=== PATIENT | female | born 1965 | race African-American/Black ===

== ENCOUNTER 2022-05-08 11:35 | Emergency (ER) | payer BC ==
[~2022-05-08] VITALS: Ht 165.1 cm; Wt 75.0 kg
[2022-05-08] MEDS ORDERED: ONDANSETRON HCL 4MG/2ML INJ IV STA (12:27)
[2022-05-08] MEDS ORDERED: MORPHINE SULFATE 4 MG/ML CPJ (NOT FOR IM USE) IV STA (12:27)
[2022-05-08] MEDS ORDERED: SODIUM CHLORIDE 0.9% 1,000 ML IV ONE (12:30)
[2022-05-08] MEDS ORDERED: FAMOTIDINE 20MG/2ML VIAL IV ONE (12:30)
[2022-05-08 12:55] LABS: BASOPHILS % 0.6 % (0.0-2.0); EOSINOPHILS % 0.1 % (0.0-5.0); HEMATOCRIT. 42.7 % (36.0-48.0); HEMOGLOBIN. 14.2 g/dL (12.0-16.0); LYMPHOCYTES % 24.2 % (20.0-50.0); MEAN CORPUSCULAR HEMOGLOBIN 34.2 pg (28.0-32.0); MEAN CORPUSCULAR VOLUME 103.1 fL (81.0-99.0); MEAN PLATELET VOLUME 7.7 fl (7.4-10.4); MONOCYTES % 8.2 % (2.0-8.0); NEUTROPHILS % 66.9 % (40.0-76.0); PLATELET 194 x1000/uL (130-400); RED BLOOD CELL COUNT 4.14 mill/uL (4.2-5.4); RED CELL DISTRIBUTION WIDTH 13.5 % (11.6-14.6)
[2022-05-08 13:11] LABS: CHLORIDE 100 mEq/L (98-107)
[2022-05-08 13:33] LABS: CLARITY URINE CLEAR (CLEAR); COLOR URINE YELLOW (YELLOW); KETONES URINE 1+ (NEGATIVE); LEUKOCYTE ESTERASE URINE 1+ (NEGATIVE); NITRITE URINE POSITIVE (NEGATIVE); OCCULT BLOOD URINE NEGATIVE (NEGATIVE); PH URINE 5.5 (4.5-8.0); PROTEIN URINE NEGATIVE (NEGATIVE); SPECIFIC GRAVITY URINE 1.007 (1.005-1.030); UROBILINOGEN URINE 0.2 E.U./dL (0.2-1.0)
[2022-05-08] MEDS ORDERED: CEFTRIAXONE 1 G PREMIX 50 ML IV ONE (14:15)
[2022-05-08] MEDS ORDERED: ONDA4TAB50 MT ×3 (14:25→15:07)
[2022-05-08] MEDS ORDERED: IBUP-2028 MT ×3 (14:25→15:07)
[2022-05-08] MEDS ORDERED: CEPH500C2 MT ×3 (14:25→15:07)
[2022-05-08 14:27] VITALS: BP 133/75
[2022-05-08] MEDS ORDERED: CEFTRIAXONE 1,000 MG in DEXTROSE 5% WATER 50 ML IV NR (14:30)
== END 2022-05-08 15:17 | disposition home or self-care (01) ==
LOC: ER 11:52
DX: N39.0 Urinary tract infection, site not specified (principal); U07.1 COVID-19; I10 Essential (primary) hypertension; M79.7 Fibromyalgia; Z98.84 Bariatric surgery status; Z88.8 Allergy status to other drugs, medicaments and biological substances; Z91.048 Other nonmedicinal substance allergy status; Z88.2 Allergy status to sulfonamides
CPT/HCPCS: 36415; 71045; 80053; 81003; 82962; 83690; 84484; 85025; 87077; 87086; 87186; 93005; 96361; 96365; 96375; 99285; J0696; J2270; J2405; J3490; J7030; J7060

== ENCOUNTER 2022-08-02 09:48 | Inpatient (IN) | payer BC ==
[~2022-08-02] VITALS: Ht 165.1 cm; Wt 71.7 kg
[~2022-08-02 09:48] MED LIST: CEPH500C2 MT; IBUP-2028 MT; ONDA4TAB50 MT
[2022-08-02 10:50] LABS: BASOPHILS % 0.8 % (0.0-2.0); EOSINOPHILS % 0.4 % (0.0-5.0); HEMATOCRIT. 44.5 % (36.0-48.0); HEMOGLOBIN. 15.2 g/dL (12.0-16.0); LYMPHOCYTES % 27.4 % (20.0-50.0); MEAN CORPUSCULAR HEMOGLOBIN 35.8 pg (28.0-32.0); MEAN PLATELET VOLUME 7.9 fl (7.4-10.4); MONOCYTES % 6.5 % (2.0-8.0); NEUTROPHILS % 64.9 % (40.0-76.0); PLATELET 289 x1000/uL (130-400); RED BLOOD CELL COUNT 4.24 mill/uL (4.2-5.4); RED CELL DISTRIBUTION WIDTH 14.3 % (11.6-14.6)
[2022-08-02 10:57] LABS: CHLORIDE 99 mEq/L (98-107)
[2022-08-02] MEDS ORDERED: TOPUD PO (11:43)
[2022-08-02] MEDS ORDERED: SODIUM CHLORIDE 0.9% 1,000 ML IV ONE (11:45)
[2022-08-02] MEDS ORDERED: ONDANSETRON HCL 4MG/2ML INJ IV PRN (14:30)
[2022-08-02] MEDS ORDERED: MAGNESIUM/ALUMINUM HYDROXIDE/SIMETHICONE 30ML UDC PO PRN (14:30)
[2022-08-02] MEDS ORDERED: DOCUSATE SODIUM 100MG CAPSULE PO PRN (14:30)
[2022-08-02] MEDS ORDERED: ACETAMINOPHEN 650MG SUPP PR PRN ×2 (14:30)
[2022-08-02] MEDS ORDERED: IPRATROPIUM/ALBUTEROL 0.5-3(2.5)MG/3ML NEB HHN PRN (14:30)
[2022-08-02] MEDS ORDERED: ACETAMINOPHEN 325MG TABLET PO PRN ×2 (14:30)
[2022-08-02] MEDS: HYDROCODONE/ACETAMINOPHEN 5/325MG TABLET PO PRN ×2 (15:33→19:35)
[2022-08-02 16:34] VITALS: BP 142/77
[2022-08-02] MEDS ORDERED: ESCI10TA PO (16:41)
[2022-08-02] MEDS ORDERED: AMLO5TAB4 PO (16:41)
[2022-08-02] MEDS ORDERED: LISI40TA13 PO (16:41)
[2022-08-02] MEDS ORDERED: CYAN-33 PO (16:47)
[2022-08-02] MEDS ORDERED: CHOL500051 (16:47)
[2022-08-02 17:00] VITALS: BP 122/77
[2022-08-02 17:55] LABS: VITAMIN B12 SERUM >2000 pg/mL pg/mL (211-911)
[2022-08-02 20:00] VITALS: BP_SYST 143; BP_SYST 145; BP_SYST 163; BP_DIAS 80; BP_DIAS 84; BP_DIAS 94
[2022-08-02] MEDS: GUAIFENESIN 200MG/10ML SUGAR FREE UDC PO PRN (20:23)
[2022-08-02 20:40] VITALS: BP 143/88
[2022-08-02] MEDS: DULOXETINE HCL 20MG DR CAPSULE PO SCH (22:00)
[2022-08-03] VITALS: BP 143/85
[2022-08-03] MEDS: GUAIFENESIN 200MG/10ML SUGAR FREE UDC PO PRN ×3 (00:37→20:06)
[2022-08-03] MEDS: HYDROCODONE/ACETAMINOPHEN 5/325MG TABLET PO PRN ×4 (00:37→20:07)
[2022-08-03 04:00] VITALS: BP 163/83
[2022-08-03] MEDS: CLONIDINE 0.1MG TABLET PO PRN ×2 (05:23→22:51)
[2022-08-03 08:00] VITALS: BP_SYST 139; BP_SYST 144; BP_SYST 154; BP_DIAS 84; BP_DIAS 91; BP_DIAS 92
[2022-08-03 08:10] LABS: BASOPHILS % 0.7 % (0.0-2.0); EOSINOPHILS % 0.7 % (0.0-5.0); HEMATOCRIT. 39.9 % (36.0-48.0); HEMOGLOBIN. 13.5 g/dL (12.0-16.0); LYMPHOCYTES % 48.2 % (20.0-50.0); MEAN CORPUSCULAR HEMOGLOBIN 35.4 pg (28.0-32.0); MEAN CORPUSCULAR VOLUME 104.7 fL (81.0-99.0); MEAN PLATELET VOLUME 7.7 fl (7.4-10.4); MONOCYTES % 9.1 % (2.0-8.0); NEUTROPHILS % 41.3 % (40.0-76.0); PLATELET 226 x1000/uL (130-400); RED BLOOD CELL COUNT 3.81 mill/uL (4.2-5.4); RED CELL DISTRIBUTION WIDTH 14.1 % (11.6-14.6)
[2022-08-03] MEDS: DULOXETINE HCL 20MG DR CAPSULE PO SCH (08:53)
[2022-08-03 09:32] LABS: CHLORIDE 102 mEq/L (98-107)
[2022-08-03 09:49] LABS: CREATINE KINASE 90 IU/L (26-192); LDL CHOLESTEROL 97 mg/dL (5-100); T4 FREE 0.69 ng/dL (0.76-1.46)
[2022-08-03] MEDS ORDERED: ZOLPIDEM TARTRATE 5MG TABLET PO PRN (11:00)
[2022-08-03] MEDS: AMLODIPINE 5MG TABLET PO SCH (11:01)
[2022-08-03] MEDS: LEVOTHYROXINE SODIUM 25MCG TABLET PO SCH (11:30)
[2022-08-03 12:00] VITALS: BP 154/82
[2022-08-03 13:17] LABS: HDL CHOLESTEROL 202 mg/dL (40-59)
[2022-08-03 16:00] VITALS: BP_SYST 138; BP_SYST 140; BP_DIAS 80
[2022-08-03 18:11] LABS: CLARITY URINE CLOUDY (CLEAR); COLOR URINE YELLOW (YELLOW); KETONES URINE NEGATIVE (NEGATIVE); LEUKOCYTE ESTERASE URINE NEGATIVE (NEGATIVE); NITRITE URINE NEGATIVE (NEGATIVE); OCCULT BLOOD URINE NEGATIVE (NEGATIVE); PH URINE 5.5 (4.5-8.0); PROTEIN URINE NEGATIVE (NEGATIVE); SPECIFIC GRAVITY URINE 1.007 (1.005-1.030); UROBILINOGEN URINE 0.2 E.U./dL (0.2-1.0)
[2022-08-03 18:22] LABS: *AMPHETAMINES SCREEN URINE NEGATIVE (NEGATIVE); *BARBITURATES SCREEN URINE NEGATIVE (NEGATIVE); *BENZODIAZEPINES SCREEN URINE NEGATIVE (NEGATIVE); *COCAINE SCREEN URINE NEGATIVE (NEGATIVE); CANNABINOID URINE SCREEN PRESUMTIVE POSITIVE (NEGATIVE); METHADONE URINE SCREEN NEGATIVE (NEGATIVE); OPIATES URINE SCREEN PRESUMTIVE POSITIVE (NEGATIVE); PHENCYCLIDINE URINE SCREEN NEGATIVE (NEGATIVE)
[2022-08-03 20:00] VITALS: BP_SYST 131; BP_SYST 146; BP_SYST 149; BP_DIAS 86; BP_DIAS 87; BP_DIAS 89
[2022-08-04] VITALS: BP 169/103
[2022-08-04 04:00] VITALS: BP 139/79
[2022-08-04] MEDS: HYDROCODONE/ACETAMINOPHEN 5/325MG TABLET PO PRN ×2 (04:01→10:08)
[2022-08-04] MEDS: LEVOTHYROXINE SODIUM 25MCG TABLET PO SCH (06:02)
[2022-08-04 08:00] VITALS: BP 140/82
[2022-08-04] MEDS: AMLODIPINE 5MG TABLET PO SCH (09:55)
[2022-08-04] MEDS: DULOXETINE HCL 20MG DR CAPSULE PO SCH (09:55)
[2022-08-04 12:00] VITALS: BP 152/91
[2022-08-04] MEDS ORDERED: ATOR20TA PO (14:41)
[2022-08-04] MEDS ORDERED: CYM20 PO (14:41)
[2022-08-04] MEDS ORDERED: BUSP5TAB3 PO (14:41)
[2022-08-04] MEDS ORDERED: TRAZ-251 PO (14:41)
[2022-08-04] MEDS ORDERED: LEVO25TA7 PO (14:41)
[2022-08-04 15:15] VITALS: BP 152/91
[2022-08-04] MEDS ORDERED: DULOXETINE HCL 20MG DR CAPSULE PO SCH (17:00)
[2022-08-04] MEDS ORDERED: ATORVASTATIN CALCIUM 20MG TABLET PO SCH (21:00)
[2022-08-04] MEDS ORDERED: TRAZODONE HCL 50MG TABLET PO SCH ×2 (21:00)
[2022-08-04] MEDS ORDERED: BUSPIRONE HCL 5MG TABLET PO SCH (21:00)
== END 2022-08-04 17:10 | disposition home health service (06) | DRG 74 ==
LOC: ER 09:48 → EDBEDREQ 12:56 → EDBEDREQTM 13:34 → 7EST 15:48
PROVIDERS: ADMIT Family Medicine Adult Medicine; ATTEND Family Medicine Adult Medicine
DX: G90.8 Other disorders of autonomic nervous system (principal); F32.9 Major depressive disorder, single episode, unspecified; F41.1 Generalized anxiety disorder; G47.00 Insomnia, unspecified; E78.00 Pure hypercholesterolemia, unspecified; I10 Essential (primary) hypertension; R00.2 Palpitations; E03.8 Other specified hypothyroidism; Z20.822 Contact with and (suspected) exposure to COVID-19; Z79.899 Other long term (current) drug therapy; Z98.84 Bariatric surgery status; Z98.82 Breast implant status; Z88.2 Allergy status to sulfonamides; Z88.8 Allergy status to other drugs, medicaments and biological substances; Z88.5 Allergy status to narcotic agent; Z87.440 Personal history of urinary (tract) infections
CPT/HCPCS: 36415; 70551; 71045; 80053; 80061; 80305; 81003; 82550; 82607; 83735; 83880; 84439; 84443; 84481; 84484; 85025; 87426; 87804; 93005; 93306; 97162; 99285; C9803; J7030

== ENCOUNTER → 2022-11-25 | Outpatient (CLI) | payer OTHER ==
[~2022-11-25] MED LIST changes: +AMLO5TAB4 PO; +ATOR20TA PO; +BUSP5TAB3 PO; -CEPH500C2 MT; +CHOL500051; +CYAN-33 PO; +CYM20 PO; -IBUP-2028 MT; +LEVO25TA7 PO; +LISI40TA13 PO; -ONDA4TAB50 MT; +TRAZ-251 PO
== END | disposition home or self-care (01) ==
LOC: MRI 08:31
PROVIDERS: ATTEND Family Medicine Adult Medicine
DX: M51.37 Other intervertebral disc degeneration, lumbosacral region (principal); M51.27 Other intervertebral disc displacement, lumbosacral region; M47.817 Spondylosis without myelopathy or radiculopathy, lumbosacral region; M48.061 Spinal stenosis, lumbar region without neurogenic claudication
CPT/HCPCS: 72148

== ENCOUNTER → 2022-12-03 | Outpatient (CLI) | payer OTHER | END | disposition home or self-care (01) | LOC: MRI 14:04 | PROVIDERS: ATTEND Family Medicine Adult Medicine | DX: M51.24 Other intervertebral disc displacement, thoracic region (principal); M54.89 Other dorsalgia | CPT/HCPCS: 72146 ==

== ENCOUNTER → 2023-01-24 | Outpatient (CLI) | payer BC ==
[2023-01-24 08:06] LABS: BASOPHILS % 0.8 % (0.0-2.0); EOSINOPHILS % 0.9 % (0.0-5.0); HEMOGLOBIN. 14.5 g/dL (12.0-16.0); LYMPHOCYTES % 34.8 % (20.0-50.0); MEAN CORPUSCULAR HEMOGLOBIN 34.6 pg (28.0-32.0); MEAN CORPUSCULAR VOLUME 102.8 fL (81.0-99.0); MEAN PLATELET VOLUME 7.5 fl (7.4-10.4); MONOCYTES % 8.4 % (2.0-8.0); NEUTROPHILS % 55.1 % (40.0-76.0); PLATELET 218 x1000/uL (130-400); RED BLOOD CELL COUNT 4.18 mill/uL (4.2-5.4); RED CELL DISTRIBUTION WIDTH 13.5 % (11.6-14.6)
[2023-01-24 08:42] LABS: CHLORIDE 102 mEq/L (98-107)
[2023-01-24 08:56] LABS: LDL CHOLESTEROL 62 mg/dL (5-100); T4 FREE 0.86 ng/dL (0.76-1.46)
[2023-01-24 09:08] LABS: VITAMIN B12 SERUM 662 pg/mL (211-911)
[2023-01-24 09:25] LABS: HDL CHOLESTEROL > 150 mg/dL (40-59)
[2023-01-25 08:10] LABS: ESTRADIOL < 5.0 pg/mL (.); FOLICLE STIMULATING HORMONE 42.9 mIU/mL (.); THYROID PEROXIDASE ANTIBODY < 9 IU/mL (0-34); VITAMIN D 25-OH 46.6 ng/mL (30.0-100.0)
== END | disposition home or self-care (01) ==
LOC: LAB 07:37
PROVIDERS: ATTEND Family Medicine
DX: I10 Essential (primary) hypertension (principal); N95.1 Menopausal and female climacteric states; E55.9 Vitamin D deficiency, unspecified
CPT/HCPCS: 36415; 80053; 80061; 82306; 82607; 82670; 83001; 83036; 84403; 84439; 84443; 84481; 85025; 86376; 86592

== ENCOUNTER 2023-04-07 10:44 | Emergency (ER) | payer BC, OTHER ==
[~2023-04-07] VITALS: Ht 165.1 cm; Wt 63.0 kg
[2023-04-07 10:57] VITALS: TEMP 99.1; O2SAT 100
[2023-04-07] MEDS ORDERED: ACETAMINOPHEN WITH CODEINE 300/30MG TABLET PO ONE (11:45)
[2023-04-07] MEDS ORDERED: KETOROLAC 60MG/2ML VIAL IM ONE (12:00)
[2023-04-07 12:02] VITALS: BP 143/90; PULSE 89; RESP 18
[2023-04-07] MEDS ORDERED: T3 PO ×2 (12:08→12:44)
== END 2023-04-07 12:52 | disposition home or self-care (01) ==
LOC: ER 10:44
DX: G89.29 Other chronic pain (principal); M54.50 Low back pain, unspecified; I10 Essential (primary) hypertension; Z87.440 Personal history of urinary (tract) infections; M79.7 Fibromyalgia; Z79.899 Other long term (current) drug therapy; Z88.2 Allergy status to sulfonamides
CPT/HCPCS: 99283; 96372; J1885

== ENCOUNTER 2023-11-08 11:14 | Inpatient (IN) | payer BC, MEDICAID ==
[~2023-11-08] VITALS: Ht 165.1 cm; Wt 54.4 kg
[~2023-11-08 11:14] MED LIST changes: +T3 PO
[2023-11-08] MEDS ORDERED: MORPHINE SULFATE 4 MG/ML CPJ (NOT FOR IM USE) IV STA (11:34)
[2023-11-08] MEDS ORDERED: ONDANSETRON HCL 4MG/2ML INJ IV STA (11:34)
[2023-11-08 12:39] LABS: BASOPHILS % 1.1 % (0.0-2.0); DIFFERENTIAL COMMENT 0; EOSINOPHILS % 1.9 % (0.0-5.0); HEMATOCRIT. 33.7 % (36.0-48.0); HEMOGLOBIN. 11.3 g/dL (12.0-16.0); LYMPHOCYTES % 38.4 % (20.0-50.0); MEAN CORPUSCULAR HEMOGLOBIN 35.6 pg (28.0-32.0); MEAN CORPUSCULAR HGB CONC 33.5 g/dL (31.0-37.0); MEAN CORPUSCULAR VOLUME 106.3 fL (81.0-99.0); MEAN PLATELET VOLUME 7.2 fl (7.4-10.4); MONOCYTES % 9.6 % (2.0-8.0); PLATELET 205 x1000/uL (130-400); RED BLOOD CELL COUNT 3.17 mill/uL (4.2-5.4); RED CELL DISTRIBUTION WIDTH 14.4 % (11.6-14.6); WHITE BLOOD COUNT 2.9 x1000/uL (4.5-11.0)
[2023-11-08 12:58] LABS: ALANINE AMINOTRANSFERASE 17 IU/L (10-49); ALBUMIN 4.1 g/dL (3.2-4.8); ASPARTATE AMINOTRANSFERASE 38 IU/L (<34); BILIRUBIN TOTAL 0.6 mg/dL (0.1-1.0); CALCIUM 9.6 mg/dL (8.7-10.4); CARBON DIOXIDE 22 mEq/L (21-32); CHLORIDE 107 mEq/L (98-107); CREATININE 1.3 mg/dL (0.6-1.0); GLUCOSE 101 mg/dL (70-105); SODIUM 139 mEq/L (136-145); UREA NITROGEN BLOOD 16 mg/dL (9-23)
[2023-11-08 13:12] LABS: TROPONIN I HIGH SENSITIVITY < 4 ng/L (3.0-34)
[2023-11-08] MEDS: MORPHINE SULFATE 4 MG/ML CPJ (NOT FOR IM USE) IV NR (13:16)
[2023-11-08] MEDS: SODIUM CHLORIDE 0.9% 1,000 ML IV ONE (13:16)
[2023-11-08] MEDS: ONDANSETRON HCL 4MG/2ML INJ IV NR (13:16)
[2023-11-08] MEDS: KETOROLAC 30MG/ML VIAL IV ONE (15:35)
[2023-11-08] MEDS: CYCLOBENZAPRINE 10MG TABLET PO ONE (15:36)
[2023-11-08] MEDS: MORPHINE SULFATE 4 MG/ML CPJ (NOT FOR IM USE) IV ONE (15:41)
[2023-11-08] MEDS ORDERED: IPRATROPIUM/ALBUTEROL 0.5-3(2.5)MG/3ML NEB NEB PRN (17:45)
[2023-11-08] MEDS ORDERED: ACETAMINOPHEN 325MG TABLET PO PRN ×2 (17:45)
[2023-11-08] MEDS ORDERED: GUAIFENESIN 200MG/10ML SUGAR FREE UDC PO PRN (17:45)
[2023-11-08] MEDS ORDERED: ONDANSETRON HCL 4MG/2ML INJ IV PRN (17:45)
[2023-11-08 18:35] VITALS: BP 166/86; PULSE 90; RESP 12; TEMP 98.8
[2023-11-08 18:37] VITALS: BP 166/86; PULSE 91; RESP 12; TEMP 98.8
[2023-11-08] MEDS: ENOXAPARIN 40MG/0.4ML SYR SUBCUT SCH (19:37)
[2023-11-08] MEDS: KETOROLAC 15MG/ML VIAL IV PRN (19:38)
[2023-11-08 20:00] VITALS: BP 159/74; PULSE 93; RESP 15; TEMP 98.5
[2023-11-08] MEDS: SODIUM CHLORIDE 0.45% 1,000 ML IV SCH (21:20)
[2023-11-08] MEDS: HYDROCODONE/ACETAMINOPHEN 5/325MG TABLET PO PRN (22:37)
[2023-11-09 00:02] VITALS: BP 99/60; PULSE 75; RESP 15; TEMP 97.9
[2023-11-09 04:00] VITALS: BP 118/76; PULSE 77; RESP 12; TEMP 97.7
[2023-11-09 06:52] LABS: ALANINE AMINOTRANSFERASE 12 IU/L (10-49); ALBUMIN 3.4 g/dL (3.2-4.8); ASPARTATE AMINOTRANSFERASE 34 IU/L (<34); BILIRUBIN TOTAL 0.4 mg/dL (0.1-1.0); CALCIUM 8.8 mg/dL (8.7-10.4); CARBON DIOXIDE 21 mEq/L (21-32); CHLORIDE 107 mEq/L (98-107); CHOLESTEROL 221 mg/dL (<200); GLUCOSE 153 mg/dL (70-105); HDL CHOLESTEROL 115 mg/dL (>65); IRON 49 ug/dL (50-170); LDL CHOLESTEROL 85 mg/dL (5-100); POTASSIUM 3.4 mEq/L (3.5-5.1); PROTEIN TOTAL 5.6 g/dL (6.0-8.3); SODIUM 137 mEq/L (136-145); TOTAL IRON BINDING CAPACITY 230 ug/dl (250-425); TRIGLYCERIDE 130 mg/dL (0-150); UREA NITROGEN BLOOD 16 mg/dL (9-23)
[2023-11-09 07:31] LABS: HEMATOCRIT. 28.3 % (36.0-48.0); HEMOGLOBIN. 9.7 g/dL (12.0-16.0); MEAN CORPUSCULAR HEMOGLOBIN 35.7 pg (28.0-32.0); MEAN CORPUSCULAR HGB CONC 34.2 g/dL (31.0-37.0); MEAN CORPUSCULAR VOLUME 104.4 fL (81.0-99.0); MEAN PLATELET VOLUME 7.8 fl (7.4-10.4); PLATELET 142 x1000/uL (130-400); RED BLOOD CELL COUNT 2.71 mill/uL (4.2-5.4); RED CELL DISTRIBUTION WIDTH 14.1 % (11.6-14.6)
[2023-11-09 08:00] VITALS: BP 144/72; PULSE 78; RESP 20; TEMP 98
[2023-11-09 08:49] LABS: DIFFERENTIAL COMMENT 1
[2023-11-09] MEDS: AMLODIPINE 10MG TABLET PO SCH (09:03)
[2023-11-09 10:06] LABS: CLARITY URINE CLOUDY (CLEAR); COLOR URINE YELLOW (YELLOW); GLUCOSE URINE NEGATIVE (NEGATIVE); KETONES URINE TRACE (NEGATIVE); LEUKOCYTE ESTERASE URINE TRACE (NEGATIVE); NITRITE URINE NEGATIVE (NEGATIVE); OCCULT BLOOD URINE NEGATIVE (NEGATIVE); PH URINE 5.5 (4.5-8.0); PROTEIN URINE TRACE (NEGATIVE); UROBILINOGEN URINE 0.2 E.U./dL (0.2-1.0)
[2023-11-09 11:35] LABS: SQUAMOUS EPITHELIAL CELL URINE 3+ /lpf (RARE/1+)
[2023-11-09 11:37] LABS: BACTERIA URINE 4+; RBC URINE 0-2 /hpf (0-2)
[2023-11-09 12:00] VITALS: BP 107/66; PULSE 76; RESP 12; TEMP 98.1
[2023-11-09] MEDS: MAGNESIUM 2 G PREMIX 50 ML IV NR (12:17)
[2023-11-09] MEDS: SERTRALINE HCL 25MG TABLET PO SCH (14:14)
[2023-11-09] MEDS ORDERED: NALOXONE HCL 0.4MG/ML VIAL IV PRN (15:15)
[2023-11-09 16:00] VITALS: BP 126/73; PULSE 94; RESP 16; TEMP 98.3
[2023-11-09 16:42] LABS: PLATELET ESTIMATE NORMAL
[2023-11-09] MEDS: POTASSIUM CHLORIDE 20MEQ TABLET SR PO NR (16:53)
[2023-11-09 17:13] LABS: FERRITIN 161 ng/mL (10-291); FOLIC ACID (FOLATE) SERUM 8.43 ng/mL (>5.38); VITAMIN B12 SERUM 370 pg/mL (211-911)
[2023-11-09 20:00] VITALS: BP 101/73; PULSE 85; RESP 17; TEMP 98.2
[2023-11-09] MEDS: MIRTAZAPINE 15MG TABLET PO SCH (20:58)
[2023-11-10] VITALS: BP 148/88; PULSE 96; RESP 19; TEMP 98.8
[2023-11-10 04:00] VITALS: BP 109/71; PULSE 93; RESP 16; TEMP 98.7
[2023-11-10 06:43] LABS: HEMATOCRIT. 30.4 % (36.0-48.0); HEMOGLOBIN. 10.2 g/dL (12.0-16.0); MEAN CORPUSCULAR HEMOGLOBIN 35.7 pg (28.0-32.0); MEAN CORPUSCULAR HGB CONC 33.5 g/dL (31.0-37.0); MEAN CORPUSCULAR VOLUME 106.7 fL (81.0-99.0); MEAN PLATELET VOLUME 7.7 fl (7.4-10.4); PLATELET 171 x1000/uL (130-400); RED BLOOD CELL COUNT 2.85 mill/uL (4.2-5.4); RED CELL DISTRIBUTION WIDTH 13.8 % (11.6-14.6)
[2023-11-10 06:57] LABS: DIFFERENTIAL COMMENT 1
[2023-11-10 06:58] LABS: WHITE BLOOD COUNT 1.9 x1000/uL (4.5-11.0)
[2023-11-10 07:11] LABS: CALCIUM 8.9 mg/dL (8.7-10.4); CARBON DIOXIDE 21 mEq/L (21-32); CHLORIDE 110 mEq/L (98-107); CREATININE 0.7 mg/dL (0.6-1.0); GLUCOSE 99 mg/dL (70-105); PHOSPHORUS 3.7 mg/dL (2.5-4.9); SODIUM 139 mEq/L (136-145); UREA NITROGEN BLOOD 11 mg/dL (9-23)
[2023-11-10 07:52] LABS: ERYTHROCYTE SEDIMENTATION RATE 17 mm/hr (0-30)
[2023-11-10 08:00] VITALS: BP 126/74; PULSE 73; RESP 16; TEMP 98.1
[2023-11-10 12:00] VITALS: BP 106/62; PULSE 94; RESP 12; TEMP 98
[2023-11-10] MEDS: DOCUSATE SODIUM 100MG CAPSULE PO SCH (13:30)
[2023-11-10 14:22] LABS: PLATELET ESTIMATE NORMAL
[2023-11-10 16:00] VITALS: BP 91/54; PULSE 84; RESP 11; TEMP 97.9
[2023-11-10 20:00] VITALS: BP 106/62; PULSE 101; RESP 16; TEMP 98.4
[2023-11-11] VITALS: BP 147/85; PULSE 102; RESP 11; TEMP 98.9
[2023-11-11 04:00] VITALS: BP 159/79; PULSE 100; RESP 19; TEMP 98.9
[2023-11-11 08:00] VITALS: BP 143/78; PULSE 114; RESP 20; TEMP 98.6
[2023-11-11] MEDS: CYANOCOBALAMIN 1000MCG TABLET PO SCH (08:00)
[2023-11-11 08:11] LABS: ALPHA FETOPROTEIN TUMOR MARKER 8.1 ng/mL (0.0-9.2); CANCER ANTIGEN 125 11.2 U/mL (0.0-38.1); CARCINOEMBRYONIC AG - SEND OUT 2.4 ng/mL (0.0-4.7)
[2023-11-11] MEDS: MAGNESIUM OXIDE 400MG TABLET PO SCH (11:30)
[2023-11-11 11:43] LABS: HEMATOCRIT. 30.7 % (36.0-48.0); HEMOGLOBIN. 10.3 g/dL (12.0-16.0); MEAN CORPUSCULAR HEMOGLOBIN 34.9 pg (28.0-32.0); MEAN CORPUSCULAR HGB CONC 33.5 g/dL (31.0-37.0); MEAN CORPUSCULAR VOLUME 104.4 fL (81.0-99.0); MEAN PLATELET VOLUME 7.8 fl (7.4-10.4); PLATELET 177 x1000/uL (130-400); RED BLOOD CELL COUNT 2.94 mill/uL (4.2-5.4); RED CELL DISTRIBUTION WIDTH 13.7 % (11.6-14.6)
[2023-11-11 11:53] LABS: CALCIUM 9.1 mg/dL (8.7-10.4); CARBON DIOXIDE 23 mEq/L (21-32); CHLORIDE 109 mEq/L (98-107); CREATININE 0.7 mg/dL (0.6-1.0); GLUCOSE 85 mg/dL (70-105); PHOSPHORUS 3.3 mg/dL (2.5-4.9); POTASSIUM 4.2 mEq/L (3.5-5.1); SODIUM 139 mEq/L (136-145); UREA NITROGEN BLOOD 12 mg/dL (9-23)
[2023-11-11 11:54] LABS: DIFFERENTIAL COMMENT 1
[2023-11-11 11:56] LABS: WHITE BLOOD COUNT 1.9 x1000/uL (4.5-11.0)
[2023-11-11 12:00] VITALS: BP 134/71; PULSE 91; RESP 18; TEMP 98
[2023-11-11] MEDS: GABAPENTIN 100MG CAPSULE PO SCH (13:11)
[2023-11-11] MEDS: LIDOCAINE HCL 4% CREAM 76GM TUBE TP PRN (14:43)
[2023-11-11 16:00] VITALS: BP 131/72; PULSE 110; RESP 16; TEMP 98
[2023-11-11] MEDS ORDERED: LEVO25TA7 PO (16:56)
[2023-11-11] MEDS ORDERED: IBUP-2028 MT (16:56)
[2023-11-11] MEDS ORDERED: MAGN400T26 MT (16:56)
[2023-11-11] MEDS ORDERED: CYAN-33 PO (16:56)
[2023-11-11] MEDS ORDERED: TOPUD PO (16:56)
[2023-11-11] MEDS ORDERED: AMLO5TAB4 PO (16:56)
[2023-11-11] MEDS ORDERED: MIRT-89 PO (16:56)
[2023-11-11] MEDS ORDERED: SERT25TA74 PO (16:56)
[2023-11-11] MEDS ORDERED: LIDO76.56 TP (16:56)
[2023-11-11] MEDS ORDERED: METO25TA6 PO (16:56)
[2023-11-11] MEDS ORDERED: GABA-529 PO (16:56)
[2023-11-11 17:59] VITALS: BP 130/71; PULSE 105; TEMP 98; O2SAT 96
[2023-11-11] MEDS ORDERED: METOPROLOL TARTRATE 25MG TABLET PO SCH (21:00)
[2023-11-12 04:18] LABS: ANISOCYTOSIS 11; PLATELET ESTIMATE NORMAL
== END 2023-11-11 18:40 | disposition home health service (06) | DRG 83 ==
LOC: ER 11:14 → 3WST 16:32 → EDBEDREQSVC 16:34 → EDBEDREQTM 16:34 → EDBEDREQ 16:34
PROVIDERS: ADMIT Internal Medicine; ATTEND Internal Medicine
DX: S06.89AA Other specified intracranial injury with loss of consciousness status unknown, initial encounter (principal); I47.10 Supraventricular tachycardia, unspecified; N39.0 Urinary tract infection, site not specified; R53.1 Weakness; I10 Essential (primary) hypertension; E78.5 Hyperlipidemia, unspecified; D53.9 Nutritional anemia, unspecified; F41.9 Anxiety disorder, unspecified; E03.8 Other specified hypothyroidism; Z88.2 Allergy status to sulfonamides; D50.9 Iron deficiency anemia, unspecified; D72.819 Decreased white blood cell count, unspecified; E78.00 Pure hypercholesterolemia, unspecified; E83.42 Hypomagnesemia; E87.6 Hypokalemia; F32.9 Major depressive disorder, single episode, unspecified; W01.0XXA Fall on same level from slipping, tripping and stumbling without subsequent striking against object, initial encounter; Y92.009 Unspecified place in unspecified non-institutional (private) residence as the place of occurrence of the external cause; Z79.899 Other long term (current) drug therapy; Z90.3 Acquired absence of stomach [part of]; Z91.81 History of falling; Z98.84 Bariatric surgery status; Z88.8 Allergy status to other drugs, medicaments and biological substances
CPT/HCPCS: 36415; 71250; 74176; 80048; 80053; 80061; 81003; 82105; 82378; 82607; 82728; 82746; 83036; 83540; 83550; 83735; 84100; 84439; 84443; 84484; 85025; 85651; 86301; 86304; 86880; 93005; 93306; 97166; 97530; 99285; J1650; J1885; J2270; J2405; J3475; J7030

== ENCOUNTER → 2024-01-12 | Outpatient (CLI) | payer OTHER ==
[~2024-01-12] MED LIST changes: -BUSP5TAB3 PO; -CHOL500051; -CYM20 PO; +GABA-529 PO; +IBUP-2028 MT; +LIDO76.56 TP; -LISI40TA13 PO; +MAGN400T26 MT; +METO25TA6 PO; +MIRT-89 PO; +SERT25TA74 PO; -T3 PO; +TOPUD PO; -TRAZ-251 PO
== END | disposition home or self-care (01) ==
LOC: MRI 12:49
PROVIDERS: ATTEND Orthopaedic Surgery
DX: M47.26 Other spondylosis with radiculopathy, lumbar region (principal); M48.061 Spinal stenosis, lumbar region without neurogenic claudication; M48.07 Spinal stenosis, lumbosacral region
CPT/HCPCS: 72148

== ENCOUNTER 2024-06-12 07:57 | Inpatient (IN) | payer MEDICAID, OTHER ==
[~2024-06-12] VITALS: Ht 167.6 cm; Wt 54.0 kg
[2024-06-12 08:42] LABS: POTASSIUM 3.5 mEq/L (3.5-5.1)
[2024-06-12 08:44] LABS: CALCIUM 10.2 mg/dL (8.7-10.4)
[2024-06-12 08:45] LABS: BASOPHILS % 1.2 % (0.0-2.0); DIFFERENTIAL COMMENT 0; EOSINOPHILS % 0.7 % (0.0-5.0); HEMATOCRIT. 40.9 % (36.0-48.0); HEMOGLOBIN. 13.4 g/dL (12.0-16.0); LYMPHOCYTES % 33.5 % (20.0-50.0); MEAN CORPUSCULAR HEMOGLOBIN 33.9 pg (28.0-32.0); MEAN CORPUSCULAR HGB CONC 32.9 g/dL (31.0-37.0); MEAN CORPUSCULAR VOLUME 103.1 fL (81.0-99.0); MEAN PLATELET VOLUME 7.7 fl (7.4-10.4); MONOCYTES % 10.9 % (2.0-8.0); NEUTROPHILS % 53.7 % (40.0-76.0); PLATELET 253 x1000/uL (130-400); RED BLOOD CELL COUNT 3.97 mill/uL (4.2-5.4); RED CELL DISTRIBUTION WIDTH 17.1 % (11.6-14.6); WHITE BLOOD COUNT 2.8 x1000/uL (4.5-11.0)
[2024-06-12 09:37] LABS: CREATININE 1.7 mg/dL (0.6-1.0)
[2024-06-12] MEDS: SODIUM CHLORIDE 0.9% 1,000 ML IV ONE ×2 (11:21→15:25)
[2024-06-12] MEDS ORDERED: MORPHINE SULFATE 4 MG/ML INJ (FOR IV/IM USE) IM ONE (13:00)
[2024-06-12] MEDS: MORPHINE SULFATE 10 MG/ML INJ (NOT FOR IM USE) IV NR (13:23)
[2024-06-12 15:42] LABS: CLARITY URINE TURBID (CLEAR); COLOR URINE YELLOW (YELLOW); GLUCOSE URINE NEGATIVE (NEGATIVE); KETONES URINE 1+ (NEGATIVE); LEUKOCYTE ESTERASE URINE 3+ (NEGATIVE); NITRITE URINE NEGATIVE (NEGATIVE); OCCULT BLOOD URINE TRACE (NEGATIVE); PH URINE 5.5 (4.5-8.0); PROTEIN URINE 1+ (NEGATIVE); SPECIFIC GRAVITY URINE 1.016 (1.005-1.030)
[2024-06-12 16:33] LABS: BACTERIA URINE 4+; RBC URINE 0-2 /hpf (0-2); SQUAMOUS EPITHELIAL CELL URINE 2+ /lpf (RARE/1+)
[2024-06-12 16:34] LABS: WBC URINE 15-25 /hpf (0-2)
[2024-06-12] MEDS ORDERED: MORPHINE SULFATE 10 MG/ML INJ (NOT FOR IM USE) IV ONE (16:45)
[2024-06-12] MEDS ORDERED: MORPHINE SULFATE 10 MG/ML INJ (NOT FOR IM USE) IV NR (18:00)
[2024-06-12] MEDS: MORPHINE SULFATE 2 MG/ML INJ (NOT FOR IM USE) IV NR (18:04)
[2024-06-12 21:00] VITALS: BP 138/85; PULSE 88; RESP 20; TEMP 36.33624; TEMP 36.3624; O2SAT 100
[2024-06-13] VITALS: BP 139/83; PULSE 79; RESP 20; TEMP 36.44736; O2SAT 98
[2024-06-13] MEDS ORDERED: ONDANSETRON HCL 4MG/2ML INJ IV PRN ×2 (00:15→22:00)
[2024-06-13] MEDS ORDERED: NALOXONE HCL 0.4MG/ML VIAL IV PRN (00:30)
[2024-06-13] MEDS: TRAZODONE HCL 50MG TABLET PO SCH (01:17)
[2024-06-13 08:00] VITALS: BP 136/81; PULSE 82; RESP 19; TEMP 36.3918; O2SAT 100
[2024-06-13] MEDS: HYDROCODONE/ACETAMINOPHEN 5/325MG TABLET PO PRN (08:33)
[2024-06-13] MEDS: FAMOTIDINE 20MG/2ML VIAL IV SCH (09:02)
[2024-06-13 12:00] VITALS: BP 158/83; PULSE 82; RESP 18; TEMP 36.72516; O2SAT 99
[2024-06-13] MEDS: CEFTRIAXONE 1GM/50ML 50 ML IV SCH (15:05)
[2024-06-13 16:00] VITALS: BP 160/83; PULSE 76; RESP 19; TEMP 36.61404; O2SAT 99
[2024-06-13 20:00] VITALS: BP 155/88; PULSE 82; RESP 19; TEMP 36.28068; O2SAT 100
[2024-06-13] MEDS ORDERED: IPRATROPIUM/ALBUTEROL 0.5-3(2.5)MG/3ML NEB HHN PRN (22:00)
[2024-06-13] MEDS ORDERED: DOCUSATE SODIUM 100MG CAPSULE PO PRN (22:00)
[2024-06-13] MEDS: HYDRALAZINE HCL 25MG TABLET PO SCH (22:00)
[2024-06-13] MEDS ORDERED: CLONIDINE 0.1MG TABLET PO PRN (22:00)
[2024-06-13] MEDS ORDERED: ACETAMINOPHEN 325MG TABLET PO PRN ×2 (22:00)
[2024-06-14] MEDS: SODIUM CHLORIDE 0.45% 1,000 ML IV SCH (02:20)
[2024-06-14 02:37] LABS: T4 FREE 1.01 ng/dL (0.89-1.76); THYROID STIMULATING HORMONE 2.19 uIU/mL (0.55-4.78)
[2024-06-14 04:00] VITALS: BP 129/81; PULSE 87; RESP 17; TEMP 36.89184; O2SAT 99
[2024-06-14 07:07] LABS: PROTHROMBIN TIME 10.7 sec (9.6-11.0)
[2024-06-14 07:16] LABS: CARBON DIOXIDE 22 mEq/L (21-32); CHLORIDE 108 mEq/L (98-107); POTASSIUM 3.1 mEq/L (3.5-5.1); SODIUM 140 mEq/L (136-145)
[2024-06-14 07:17] LABS: CALCIUM 9.5 mg/dL (8.7-10.4)
[2024-06-14 07:21] LABS: TRIGLYCERIDE 94 mg/dL (0-150)
[2024-06-14 07:22] LABS: GLUCOSE 102 mg/dL (70-105); PROTEIN TOTAL 6.1 g/dL (6.0-8.3); UREA NITROGEN BLOOD 11 mg/dL (9-23)
[2024-06-14 07:23] LABS: ALANINE AMINOTRANSFERASE 22 IU/L (10-49); ALBUMIN 3.4 g/dL (3.2-4.8); ASPARTATE AMINOTRANSFERASE 35 IU/L (<34); LDL CHOLESTEROL 92 mg/dL (5-100)
[2024-06-14 07:24] LABS: BILIRUBIN DIRECT 0.1 mg/dL (<=3.0); BILIRUBIN TOTAL 0.3 mg/dL (0.1-1.0); CHOLESTEROL 310 mg/dL (<200); PHOSPHORUS 3.3 mg/dL (2.5-4.9)
[2024-06-14 07:25] LABS: BASOPHILS % 0.9 % (0.0-2.0); DIFFERENTIAL COMMENT 0; EOSINOPHILS % 0.5 % (0.0-5.0); HEMATOCRIT. 35.4 % (36.0-48.0); HEMOGLOBIN. 11.6 g/dL (12.0-16.0); LYMPHOCYTES % 40.5 % (20.0-50.0); MEAN CORPUSCULAR HEMOGLOBIN 33.5 pg (28.0-32.0); MEAN CORPUSCULAR HGB CONC 32.8 g/dL (31.0-37.0); MEAN CORPUSCULAR VOLUME 102.3 fL (81.0-99.0); MEAN PLATELET VOLUME 8.2 fl (7.4-10.4); MONOCYTES % 10.9 % (2.0-8.0); NEUTROPHILS % 47.2 % (40.0-76.0); PLATELET 226 x1000/uL (130-400); RED BLOOD CELL COUNT 3.46 mill/uL (4.2-5.4); RED CELL DISTRIBUTION WIDTH 16.6 % (11.6-14.6); WHITE BLOOD COUNT 2.9 x1000/uL (4.5-11.0)
[2024-06-14 07:46] LABS: HDL CHOLESTEROL 147 mg/dL (>65)
[2024-06-14 08:00] VITALS: BP 91/43; PULSE 89; RESP 19; TEMP 37.11408; O2SAT 99
[2024-06-14] MEDS ORDERED: SODIUM CHLORIDE 0.9% 1,000 ML IV SCH ×2 (08:45→08:50)
[2024-06-14 12:00] VITALS: BP 155/87; PULSE 87; RESP 18; TEMP 36.61404; O2SAT 98
[2024-06-14] MEDS: PANTOPRAZOLE SODIUM 40 MG/VIAL IV SCH (14:25)
[2024-06-14] MEDS: POTASSIUM CHLORIDE 20MEQ/PACKET PO NR (15:06)
[2024-06-14 16:00] VITALS: BP 128/64; PULSE 99; RESP 18; TEMP 36.3918; O2SAT 99
[2024-06-14] MEDS ORDERED: MAGNESIUM 2 G PREMIX 50 ML IV NR (16:00)
[2024-06-14] MEDS: ALPRAZOLAM 0.5 MG TABLET PO PRN (18:40)
[2024-06-14 20:00] VITALS: BP 135/78; PULSE 82; RESP 19; TEMP 36.6696; O2SAT 100
[2024-06-14] MEDS: ATORVASTATIN CALCIUM 40MG TABLET PO SCH (21:30)
[2024-06-15 08:00] VITALS: BP 119/74; PULSE 92; RESP 20; TEMP 36.55848; O2SAT 100
[2024-06-15] MEDS ORDERED: LIP40 MT (09:50)
[2024-06-15] MEDS ORDERED: LEVO-65 MT (09:50)
[2024-06-15] MEDS ORDERED: PROT40 MT (09:50)
[2024-06-15 12:00] VITALS: BP 114/74; PULSE 88; RESP 20; TEMP 36.44736; O2SAT 100
[2024-06-15 16:00] VITALS: BP 114/74; PULSE 88; RESP 20; TEMP 36.44736; O2SAT 100
[2024-06-15 18:24] VITALS: BP 112/76; PULSE 78; TEMP 98; O2SAT 98
== END 2024-06-15 20:12 | disposition home or self-care (01) | DRG 463 ==
LOC: ER 07:57 → 6EST 11:34 → EDBEDREQ 11:35 → EDBEDREQTM 11:35 → EDBEDREQ 11:36
PROVIDERS: ADMIT Internal Medicine; ATTEND Internal Medicine
DX: N39.0 Urinary tract infection, site not specified (principal); N17.9 Acute kidney failure, unspecified; D72.819 Decreased white blood cell count, unspecified; I10 Essential (primary) hypertension; R13.10 Dysphagia, unspecified; Z98.84 Bariatric surgery status; Z88.2 Allergy status to sulfonamides
CPT/HCPCS: 36415; 71250; 74176; 80048; 80061; 80076; 81003; 83605; 83735; 84100; 84145; 84439; 84443; 84480; 85025; 85379; 92610; 99285; J0696; J2270; J2470; J3475; J3490; J7030